=== PATIENT | male | born 1995 | race Caucasian/White ===

== ENCOUNTER 2016-10-16 10:47 | Emergency (ER) | payer OTHER, SELFPAY ==
[2016-10-16 11:07] VITALS: BP 141/78
--- NOTE | 2016-10-16 11:44 | EDM.PDOC ---
ED HPI Skin/Rash - General Chief Complaint: Laceration Stated Complaint: CUT FINGER Time Seen by Provider: 10/16/16 10:49 Source: Reports: Patient, RN, RN notes reviewed History Limitations: Reports: No limitations - History of Present Illness INITIAL COMMENTS - FREE TEXT/NARRATIVE: Patient presents to the ED at [facility] after he sustained a laceration to the tip of the left index finger. The patient states while he was using a knife at work, the knife slipped, causing the laceration. No previous injury or trauma. No previous left hand surgeries or injuries. Symptom Onset Date: 10/16/16 Symptom Onset Time: 10:10 Timing: Reports: better Location, Skin: Reports: upper extremity, left Known Identified Source: yes Place of Occurrence: work - Related Data Allergies Allergy/AdvReac Type Severity Reaction Status Date / Time No Known Allergies Allergy Verified 10/16/16 11:10 Home Meds: Ambulatory Orders Medication Instructions Recorded Confirmed . [No Known Home Meds] 12/18/13 10/16/16 Past Medical History - Past Health History Medical/Surgical History: Denies Medical/Surgical History Social & Family History - Tobacco Use Smoking Status *Q: Never Smoker - Alcohol Use Days Per Week of Alcohol Use: 0 - Recreational Drug Use Recreational Drug Use: No ED ROS GENERAL - Review of Systems Review Of Systems: See Below Constitutional: Denies: fever, chills, weakness Respiratory: Denies: shortness of breath, cough Cardiovascular: Denies: Chest pain, Palpitations Musculoskeletal: Reports: other (left index finger pain) Skin: Reports: wound (cut to tip of left index finger) Neurological: Reports: no symptoms. Denies: dizziness, headache, numbness, paresthesia, tingling ED EXAM, SKIN/RASH Exam: See Below Exam Limited By: No limitations General Appearance: alert, no apparent distress Respiratory/Chest: no respiratory distress, lungs clear, normal breath sounds Cardiovascular: regular rate, rhythm Peripheral Pulses: 2+: radial (L), radial (R) Extremities: normal inspection, normal range of motion Neurological: alert, oriented Skin: Warm, Dry, Normal color, No rash, Wound/incision Location, Skin: upper extremity, left Characteristics: other (laceration) Associated features: inflammation ED SKIN PROCEDURES - Laceration/Wound Repair Left Distal Finger Lac/wound length in cm: 0 (wound is C-shape and irregular; unable to measure) Appearance: superficial, irregular, clean Distal NVT: neuro & vascular intact, no tendon injury Skin prep: chlorhexidine (hibiciens) Exploration/Debridement/Repair: wound explored, in a bloodless field, explored to base, no foreign material found, wound margins revised Closed with: dermabond (tip of left index finger) Sterile dressing applied: provider Tetanus status addressed: Yes Complications: No Course - Vital Signs Last Recorded V/S: Last Vital Signs Temp 35.6 C 10/16/16 10:50 Pulse 83 10/16/16 10:50 Resp 18 10/16/16 10:50 BP 141/78 H 10/16/16 10:50 Pulse Ox 99 10/16/16 10:50 - Orders/Labs/Meds Orders: Active Orders 24 hr Category Date Time Status Vaccines to be Administered [RC] PER UNIT ROUTINE Care 10/16/16 11:45 Ordered Diphth,Pertuss(Acell),Tet Vac [Adacel] Med 10/16/16 11:45 Once 0.5 ml IM .ONCE ONE Medication Orders Diphtheria/Tetanus/Acell Pertussis (Adacel) 0.5 ml IM .ONCE ONE Stop: 10/16/16 11:46 Meds: Medications Generic Name Dose Route Start Last Admin Trade Name Freq PRN Reason Stop Dose Admin Diphtheria/Tetanus/Acell Pertussis 0.5 ml 10/16/16 11:45 Adacel IM 10/16/16 11:46 .ONCE ONE Departure - Departure Time of Disposition: 11:46 Disposition: Home, Self-Care 01 Condition: good Clinical Impression: Encounter related to worker's compensation claim, Need for diphtheria-tetanus- pertussis (Tdap) vaccine Laceration of finger of left hand Qualifiers: Encounter type: initial encounter Qualified Code(s): S61.219A - Laceration without foreign body of unspecified finger without damage to nail, initial encounter Instructions: Laceration Care, Adult, [id number] Referrals: Sarah Arzate NP [Primary Care Provider] - Forms: ED Department Discharge Additional Instructions: 1. Keep finger clean and dry 2. If you must get the finger dirty, cover the wound area 3. The skin glue will come off on its own, do not try to remove 4. See your Primary as symptoms warrant - Problem List Review Problem List Initiated/Reviewed/Updated: Yes - My Orders Last 24 Hours: My Active Orders 10/16/16 11:45 Vaccines to be Administered [RC] PER UNIT ROUTINE Diphth,Pertuss(Acell),Tet Vac [Adacel] 0.5 ml IM .ONCE ONE - Assessment/Plan Last 24 Hours: My Active Orders 10/16/16 11:45 Vaccines to be Administered [RC] PER UNIT ROUTINE Diphth,Pertuss(Acell),Tet Vac [Adacel] 0.5 ml IM .ONCE ONE
[2016-10-16] MEDS ORDERED: Diphtheria,Pertussis(Acell),Tetanus Vaccine 0.5 ML Syringe IM ONE (11:45)
== END 2016-10-16 11:58 | disposition home or self-care (01) ==
LOC: VM.ED 10:47
DX: S61.211A Laceration without foreign body of left index finger without damage to nail, initial encounter (principal); Z23 Encounter for immunization; W26.0XXA Contact with knife, initial encounter; Y99.0 Civilian activity done for income or pay
CPT/HCPCS: 12001; 90715; 99283